=== PATIENT | male | born 1960 | race Caucasian/White ===

== ENCOUNTER 2019-11-10 07:03 | Outpatient (CLI) | payer BC, SELFPAY ==
--- NOTE | 2019-11-27 11:53 | SLEEP_ITS ---
Split night sleep study. DATE OF STUDY: 11/10/2019 ORDERING PHYSICIAN: Antonio Mccoy M.D. REASON FOR THE STUDY: Unspecified sleep apnea. HISTORY: This patient is a 59-year-old man, 70 inches tall, weighing 305 pounds with a body mass index of 43.8. Home sleep test ordered on 08/04/[address] Carrillo showed an AHI of 11.7, desaturation to 80% and loud snoring. He has coronary artery disease with a history of stent in his distal RCA. He has hypertension, diabetes, and morbidly obesity. He has complaints of poor quality sleep with daytime sleepiness. He is awake at least 3 times at night to use the bathroom. He has excessive daytime sleepiness and he wakes up frequently throughout the night.He frequently wakes up at night with heartburn, belching, snoring, which is loud enough that others complain about it. He occasionally awakens from sleep feeling short of breath. He rarely has trouble sleeping with a cold and rarely wakes up gasping for breath at night. He rarely has breathing problems reported to him by others. He does not sweat excessively at night or notices heart pounding irregularly at night. He occasionally falls asleep during the day, rarely involuntarily, never while driving, or with physical effort. He does not have loss of muscle tone with strong emotion. He rarely has daytime difficulty due to excessive sleepiness. He does not feel paralyzed on waking or falling asleep and does not have vivid dreamlike scenes upon awakening or falling asleep. He is never afraid to go to sleep. He rarely remembers his dreams. He occasionally has racing thoughts. He does not feel sad or depressed. He occasionally has anxiety. He rarely has muscular tension. He does not notice parts of his body jerking. He denies kicking at night. He rarely has crawly achy feelings in his legs or leg pain at night. He denies morning jaw pain and denies grinding his teeth during sleep. He is occasionally bothered by pain during the day, rarely he is awakened by pain at night. He occasionally wakes up feeling stiff in the morning. He denies waking up with sore achy muscles. He has stomach problems and fatigue. He takes antacids regularly. Normal bedtime is 9 p.m., falling asleep quickly, waking 3 times at night for 10 minutes to use the bathroom. He wakes in the morning at 5 a.m. On the weekends, he goes to bed 2 hours later and wakes 2 hours later. He takes naps. A short nap is not refreshing. Most of the time he feels good in the morning. MEDICAL COMORBIDITIES: Hypertension, heart disease, diabetes, acid reflux, constipation. There is a history of CPAP use in the past. . MEDICATIONS: 1. Amlodipine 10. 2. Benazepril 10/40 one tablet daily. 3. Dexilant 1 tablet daily. 4. Vascepa 1 twice a day for triglycerides. 5. Brilinta 90 mg a day. 6. Atorvastatin 80 mg a day. 7. Metformin 1000 mg twice a day. 8. Invokana 100 mg a day. 9. Pioglitazone daily. 10. Allopurinol 10 mg daily for gout. HABITS: Never smoked tobacco. Caffeine, 3 beverages a day. Alcohol, 1 or 2 per week. DESCRIPTION OF THE STUDY: On the [place] Sleepiness Scale, his score is 5. This was conducted as a split night study using the [employer] multiple channel system including EOG, EEG, submental EMG, EKG, nasal and oral airflow using thermistors, nasal pressure sensors, chest and abdominal belts, body position data, and pulse oximetry. The study was scored using CMS guidelines. Duration of the baseline was 206 minutes. Sleep time was 144.5 minutes. Sleep efficiency was 70.1%. Sleep latency was 14.9 minutes. REM latency 148.5 minutes prolonged. He had 16 awakenings and spent 46.6 minutes awake after sleep onset. Sleep architecture showed 10% stage 1 sleep, 89.3% stage 2 sleep, no st
== END 2019-11-10 07:04 | disposition home or self-care (01) ==
LOC: ANHCSM 07:30
PROVIDERS: Visit Provider Internal Medicine Cardiovascular Disease
DX: G47.30 Sleep apnea, unspecified (principal)
CPT/HCPCS: 95811

== ENCOUNTER 2019-11-23 18:00 | Outpatient (RCR) | payer BC, SELFPAY ==
[2019-09-08 09:11] VITALS: PULSE 72
[2019-09-11 18:40] LABS: Glucose Point of Care 274 (65-105)
--- NOTE | 2019-10-26 19:00 | PCCPR ---
Absent this week without call or show Called and left message for Yared requesting he give us a call to update his plan for return.
== END 2019-11-28 08:49 | disposition home or self-care (01) ==
LOC: ANHCPREHAB 18:00
PROVIDERS: Visit Provider Internal Medicine Cardiovascular Disease
DX: Z95.5 Presence of coronary angioplasty implant and graft (principal)
CPT/HCPCS: 93798